=== PATIENT | male | born 1940 | race Caucasian/White ===

== ENCOUNTER 2017-12-28 19:35 | Inpatient (IN) | payer MEDICARE, BC ==
[~2017-12-28] VITALS: Ht 188 cm; Wt 107.5 kg
[~2017-12-28 19:35] MED LIST: AMOX500 PO; ASPI81CH PO; BUPR75 PO; GLIM4 PO; INSULANPEN SC; JANUMET XR 50-1 EAC1 PO; LISI5 PO; MAGOXI400 PO; Ocuvite Preser1 EACH PO; ROSU5 PO; RXAMOX500 PO; TICA90TA PO; [UNRECOGNIZED DRUG - OTHER]
[2017-12-28 20:10] LABS: BASOPHILS ABSOLUTE AUTO 0.05 K/mm3 (0.00-0.23); BASOPHILS PERCENT AUTO 0 % (0-2); EOSINOPHILS ABSOLUTE AUTO 0.32 K/mm3 (0.00-0.68); EOSINOPHILS PERCENT AUTO 3 % (0-6); Hematocrit 42.4 % (37.0-53.0); Hemoglobin 13.6 g/dL (13.5-17.5); IMMATURE GRAN ABSOLUTE AUTO 0.02 K/mm3 (0.00-0.10); IMMATURE GRAN PERCENT AUTO 0 % (0-1); LYMPHOCYTES ABSOLUTE AUTO 3.47 K/mm3 (0.84-5.20); LYMPHOCYTES PERCENT AUTO 29 % (21-46); MONOCYTES ABSOLUTE AUTO 0.92 K/mm3 (0.16-1.47); MONOCYTES PERCENT AUTO 8 % (4-13); Mean Corpuscular HGB 30.2 pg (26.0-34.0); Mean Corpuscular HGB Conc 32.1 g/dL (31.5-36.5); Mean Corpuscular Volume 94 fL (80-100); Mean Platelet Volume 9.6 fL (9.1-12.4); NEUTROPHILS ABSOLUTE AUTO 7.36 K/mm3 (1.96-9.15); NEUTROPHILS PERCENT AUTO 61 % (41-73); Platelet Count 248 K/mm3 (150-400); RDW Coefficient Variation 12.8 % (11.7-14.2); RDW Standard Deviation 43.8 fL (35.1-46.3); Red Blood Cell Count 4.51 M/mm3 (4.30-5.90); White Blood Cell Count 12.14 K/mm3 (4.00-11.30)
[2017-12-28 20:28] LABS: Alanine Aminotransfer (ALT/SGP 23 U/L (12-78); Albumin/Globulin Ratio 0.8 (0.8-1.8); Alk Phos 42 U/L (50-136); Anion Gap 8 mmol/L (6-16); Aspartate Aminotrans (AST/SGOT 22 U/L (12-37); Bilirubin, Total 0.4 mg/dL (0.1-1.0); Blood Urea Nitrogen 23 mg/dL (8-24); Bun/Creatinine Ratio 14.8 (12.0-20.0); CO2, Blood 24 mmol/L (21-32); Calcium, Blood 8.1 mg/dL (8.5-10.1); Chloride, Blood 109 mmol/L (98-108); Creatinine, Blood 1.55 mg/dL (0.60-1.20); Globulin, Blood 3.9 g/dL (2.2-4.0); Glomerular Filtration Rate 47 (60-); Glucose, Blood 112 mg/dL (70-99); Magnesium, Blood 2.1 mg/dL (1.6-2.4); Potassium, Blood 4.5 mmol/L (3.5-5.5); Sodium, Blood 141 mmol/L (136-145); Total Protein, Blood 6.9 g/dL (6.4-8.2); Troponin I <0.015 ng/mL (0.000-0.040)
[2017-12-28] MEDS ORDERED: Janumet 50-1,01 EACH PO (23:39)
[2017-12-28] MEDS ORDERED: CARV3.125 (23:53)
[2017-12-29 03:59] LABS: Bun/Creatinine Ratio 15.2 (12.0-20.0); Calcium, Blood 7.6 mg/dL (8.5-10.1); Creatinine, Blood 1.51 mg/dL (0.60-1.20); Potassium, Blood 4.1 mmol/L (3.5-5.5)
[2017-12-29 10:23] LABS: International Normalized Ratio 1.05; Prothrombin Time Results 10.9 Sec (9.7-11.5)
== END 2017-12-29 13:43 | disposition short-term general hospital (02) | DRG 282 ==
LOC: ER 19:35 → MEDS 19:36 → PCU 12-29 10:44 → MEDS 12-29 12:44 → PCU 12-29 13:43
PROVIDERS: Emergency Medicine; Internal Medicine; Internal Medicine Cardiovascular Disease
PROC: 3E0234Z Introduction of Serum, Toxoid and Vaccine into Muscle, Percutaneous Approach (ICD-10-PCS; 2017-12-28)
PROC: 4A023N7 Measurement of Cardiac Sampling and Pressure, Left Heart, Percutaneous Approach (ICD-10-PCS; principal; 2017-12-29)
PROC: B2111ZZ Fluoroscopy of Multiple Coronary Arteries using Low Osmolar Contrast (ICD-10-PCS; 2017-12-29)
DX: I21.4 Non-ST elevation (NSTEMI) myocardial infarction (principal); E11.22 Type 2 diabetes mellitus with diabetic chronic kidney disease; E11.40 Type 2 diabetes mellitus with diabetic neuropathy, unspecified; E78.5 Hyperlipidemia, unspecified; I25.10 Atherosclerotic heart disease of native coronary artery without angina pectoris; I25.2 Old myocardial infarction; Z23 Encounter for immunization; I12.9 Hypertensive chronic kidney disease with stage 1 through stage 4 chronic kidney disease, or unspecified chronic kidney disease; N18.9 Chronic kidney disease, unspecified; I44.0 Atrioventricular block, first degree; N40.0 Benign prostatic hyperplasia without lower urinary tract symptoms
CPT/HCPCS: 36415; 71045; 80048; 80053; 82947; 83735; 84484; 85025; 85610; 85730; 86850; 86900; 86901; 93005; 93010; 93306; 93458; 96372; 96374; 96375; 99152; 99153; 99285; C1769; C1894; G0378; J1170; J1644; J1650; J1815; J2250; J2405; J3010; J7030; Q9967

== ENCOUNTER 2018-11-12 11:01 | Day surgery (SDC) | payer MEDICARE, BC ==
[~2018-11-12] VITALS: Ht 188 cm; Wt 94.4 kg
[~2018-11-12 11:01] MED LIST changes: +CARV3.125; +Janumet 50-1,01 EACH PO; +METF500C; +METO25; +PANT40; +TRULICITY0.75 MG/0.
== END 2018-11-12 13:05 | disposition home or self-care (01) ==
LOC: ORSCSDS 11:01
PROVIDERS: Internal Medicine Gastroenterology
PROC: 0DB68ZX Excision of Stomach, Via Natural or Artificial Opening Endoscopic, Diagnostic (ICD-10-PCS; principal; 2018-11-12 12:30)
PROC: 0DJD8ZZ Inspection of Lower Intestinal Tract, Via Natural or Artificial Opening Endoscopic (ICD-10-PCS; principal; 2018-11-12 12:30)
DX: K30 Functional dyspepsia (principal); Z12.11 Encounter for screening for malignant neoplasm of colon; K20.9 Esophagitis, unspecified; K29.70 Gastritis, unspecified, without bleeding; K22.2 Esophageal obstruction; K31.7 Polyp of stomach and duodenum; K57.30 Diverticulosis of large intestine without perforation or abscess without bleeding; I25.10 Atherosclerotic heart disease of native coronary artery without angina pectoris; I12.9 Hypertensive chronic kidney disease with stage 1 through stage 4 chronic kidney disease, or unspecified chronic kidney disease; E11.22 Type 2 diabetes mellitus with diabetic chronic kidney disease; N18.9 Chronic kidney disease, unspecified; K21.9 Gastro-esophageal reflux disease without esophagitis; I25.2 Old myocardial infarction; Z87.891 Personal history of nicotine dependence; Z79.899 Other long term (current) drug therapy; Z79.82 Long term (current) use of aspirin
CPT/HCPCS: 43239; G0121; 82947; 88305; 88342; J7120

== ENCOUNTER → 2019-01-28 | Outpatient (CLI) | payer MEDICARE, BC ==
[2019-01-28 13:09] LABS: Appearance, Urine Clear (Clear); Bilirubin, Urine Neg (Neg); Blood, Urine Neg (Neg); Color, Urine Yellow (P-Yellow); Glucose Qualitative, Urine Neg (Neg); Ketones, Urine Neg (Neg); Leukocyte Esterase, Urine Neg (Neg); Nitrite, Urine Neg (Neg); Protein, Urine Neg (Neg); Urobilinogen, Urine NORM (Normal)
== END | disposition home or self-care (01) ==
LOC: LAB 09:49 → LAB SHORT 09:49
PROVIDERS: Internal Medicine
DX: N18.3 Chronic kidney disease, stage 3 (moderate) (principal)
CPT/HCPCS: 81003

== ENCOUNTER 2019-05-09 19:25 | Inpatient (IN) | payer MEDICARE, BC ==
[~2019-05-09] VITALS: Ht 188 cm; Wt 99.1 kg
[~2019-05-09 19:25] MED LIST changes: +ASPI325 PO; -ASPI81CH PO; -BUPR75 PO; +Wellbutrin Sr200 MG PO
[2019-05-09 20:00] LABS: BASOPHILS ABSOLUTE AUTO 0.04 K/mm3 (0.00-0.23); BASOPHILS PERCENT AUTO 1 % (0-2); EOSINOPHILS ABSOLUTE AUTO 0.29 K/mm3 (0.00-0.68); EOSINOPHILS PERCENT AUTO 4 % (0-6); Hematocrit 42.7 % (37.0-53.0); Hemoglobin 13.7 g/dL (13.5-17.5); IMMATURE GRAN ABSOLUTE AUTO 0.02 K/mm3 (0.00-0.10); IMMATURE GRAN PERCENT AUTO 0 % (0-1); LYMPHOCYTES ABSOLUTE AUTO 2.47 K/mm3 (0.84-5.20); LYMPHOCYTES PERCENT AUTO 32 % (21-46); MONOCYTES PERCENT AUTO 9 % (4-13); Mean Corpuscular HGB 31.2 pg (26.0-34.0); Mean Corpuscular HGB Conc 32.1 g/dL (31.5-36.5); Mean Corpuscular Volume 97 fL (80-100); Mean Platelet Volume 9.5 fL (9.1-12.4); NEUTROPHILS ABSOLUTE AUTO 4.24 K/mm3 (1.96-9.15); NEUTROPHILS PERCENT AUTO 55 % (41-73); Platelet Count 290 K/mm3 (150-400); RDW Coefficient Variation 13.2 % (11.7-14.2); RDW Standard Deviation 47.2 fL (35.1-46.3); Red Blood Cell Count 4.39 M/mm3 (4.30-5.90); White Blood Cell Count 7.76 K/mm3 (4.00-11.30)
[2019-05-09] MEDS ORDERED: METO25 PO (20:03)
[2019-05-09] MEDS ORDERED: Janumet 50-5001 EACH PO (20:03)
[2019-05-09] MEDS ORDERED: MULTI VITAMIN1 EACH PO (20:04)
[2019-05-09] MEDS ORDERED: Senna8.6 MG PO (20:04)
[2019-05-09 20:16] LABS: Albumin, Blood 3.3 g/dL (3.4-5.0); Albumin/Globulin Ratio 0.9 (0.8-1.8); Bilirubin, Total 0.4 mg/dL (0.1-1.0); Calcium, Blood 8.9 mg/dL (8.5-10.1); Creatinine, Blood 1.93 mg/dL (0.60-1.20); Globulin, Blood 3.8 g/dL (2.2-4.0); Potassium, Blood 4.2 mmol/L (3.5-5.5); Total Protein, Blood 7.1 g/dL (6.4-8.2)
[2019-05-09 20:37] LABS: Ethanol (Alcohol), Blood, Med <3 mg/dL; Troponin I <0.015 ng/mL (0.000-0.040)
[2019-05-09 21:09] LABS: Source, Urine Clean Catch
[2019-05-09 21:11] LABS: Bilirubin, Urine Neg (Neg); Blood, Urine Neg (Neg); Glucose Qualitative, Urine Neg (Neg); Ketones, Urine Neg (Neg); Leukocyte Esterase, Urine Neg (Neg); Nitrite, Urine Neg (Neg); Protein, Urine 1+ (Neg); Urobilinogen, Urine NORM (Normal)
[2019-05-09 21:12] LABS: Appearance, Urine Clear (Clear); Color, Urine Yellow (P-Yellow)
[2019-05-09 21:26] LABS: U Amphetamine Screen Not Detected; U Barbituate Screen Not Detected; U Benzodiazapine Screen Not Detected; U Buprenorphine Screen Not Detected; U Cannabinoids Screen Not Detected; U Cocaine Screen Not Detected; U Methadone Screen Not Detected; U Methamphetamine Screen Not Detected; U Opiates Screen Not Detected; U Oxycodone Screen Not Detected; U Phencyclidine Screen Not Detected; U Propoxyphene Screen Not Detected
--- NOTE | 2019-05-10 05:34 | NUR ---
05/10/19 0535 PT AWAKENED BY PLUSH BRUSHER TO DRAW BLOOD. SLEEPY BUT PLEASANT AND COOPERATIVE. DENIES ANY DISCOMFORT OR S/S. RN ASKED IF HE NEEDED TO URINATE AND HE SAID,"NO." EARLIER AT O350 PT DENIED NEED TO URINATE. BLADDER SCAN WAS DONE AND SHOWED 825 ML. RN INFORMED PT TO TRY AND VOID AND HE STOOD AND VOIDED 150 ML CLEAR, CECY URINE. PT DECLINED TO TRY TO VOID AT THIS TIME. HEART MONITOR STABLE AT "SR WITH FIRST DEGREE HEART BLOCK AT 77."
[2019-05-10 06:15] LABS: Hematocrit 38.8 % (37.0-53.0); Hemoglobin 12.5 g/dL (13.5-17.5); Mean Corpuscular HGB 31.3 pg (26.0-34.0); Mean Corpuscular HGB Conc 32.2 g/dL (31.5-36.5); Mean Corpuscular Volume 97 fL (80-100); Mean Platelet Volume 9.8 fL (9.1-12.4); Platelet Count 260 K/mm3 (150-400); RDW Coefficient Variation 13.3 % (11.7-14.2); RDW Standard Deviation 47.9 fL (35.1-46.3); White Blood Cell Count 8.47 K/mm3 (4.00-11.30)
[2019-05-10 07:12] LABS: Albumin, Blood 2.9 g/dL (3.4-5.0); Albumin/Globulin Ratio 0.9 (0.8-1.8); Bilirubin, Total 0.4 mg/dL (0.1-1.0); Bun/Creatinine Ratio 12.5 (12.0-20.0); Calcium, Blood 8.3 mg/dL (8.5-10.1); Creatinine, Blood 1.84 mg/dL (0.60-1.20); Globulin, Blood 3.4 g/dL (2.2-4.0); Potassium, Blood 3.8 mmol/L (3.5-5.5); Total Protein, Blood 6.3 g/dL (6.4-8.2)
--- NOTE | 2019-05-10 10:43 | NUR ---
BLADDER SCAN POST VOID RESDIUAL SHOWED 999, CALL TO DR SALAS AND ORDERS FOR ATKINS CATH RECEIVED. PT'S AT BEDSIDE, SHE STATES THIS IS NORMAL FOR PT AND HIS MD IS AWARE. REQUESTS THAT ATKINS BE DELAYED UNTIL SHE SPEAKS WITH DR SALAS
--- NOTE | 2019-05-10 14:30 | NUR ---
MRI SCREENING FORM PT NOT ABLE TO ANSWER MRI SCREENING QUESTIONS, CALLED HIS [facility] AND OBTAINED ANSWERS OVER THE PHONE. FAXED TO IMAGING.
--- NOTE | 2019-05-10 15:21 | NUR ---
STRAIGHT CATH STRAIGHT CATH INSERTED WITHOUT DIFFICULTY. 1150 CLEAR CECY URINE RETURNED. UA SENT PER ORDER. PT TOLERATED WELL.
--- NOTE | 2019-05-10 17:17 | NUR ---
NO C/O PAIN OR OTHER DISCOMFORT, USING URINAL, BLADDER SCAN DONE WITH RESULTS OF 999. DR CALLED AND ORDERS OBTAINED FOR ATKINS INSERTION AND THEN A STRAIGHT CATH WHEN SPOUSE DENIED ATKINS. STRAIGHT CATH COMPLETED WITHOUT DIFFICULTY AND 1150 ML RESULT. URINE CULTURE SENT PER ORDERS. MRI OF HEAD ORDERED, WAITING AT THIS TIME. NO ACUTE CHANGES NOTED THIS SHIFT. WILL CONTINUE TO MONITOR AND REPORT TO ONCOMING RN.
--- NOTE | 2019-05-10 22:54 | NUR ---
05/10/19 2100 ALERT TO SELF ONLY THIS EVENING. WHEN ASKED IF HE SPOKE WITH MD TODAY HE STATED HE SAW THE DOCTOR AT "[facility]OW BY THE ELEVATOR". HE DID NOT KNOW WHERE HE WAS OR THE DATE.
--- NOTE | 2019-05-11 01:48 | NUR ---
05/11/19 0035 BED ALARM SOUNDED AND PT STATED HE NEEDED TO "PEE". INSISTED TO GO TO BATHROOM AND GIVEN URINAL TO USE AND EXPLAINED NEED TO MEASURE URINE. AFTER PT CAME OUT OF BATHROOM HE DUMPED URINE IN TOILET AND THUS RN UNSURE OF AMOUNT VOIDED. BLADDER SCAN DONE = 947 ML. AT 0100 RN CATHED BUT ONLY DRAINED 220 ML. BED ALARM ON.
--- NOTE | 2019-05-11 03:36 | NUR ---
05/11/19 0310 PT TOOK OFF TWILL CUTTER AGAIN. NO REASON GIVEN. TELEMETRY REAPPLIED. MORE CONFUSED TONIGHT. INFORMED PT NOT TO TAKE OFF ANY EQUIPMENT HE IS IN THE HOSPITAL FOR OBSERVATION. SMILED AND SAID,"OKAY".
--- NOTE | 2019-05-11 03:51 | NUR ---
05/11/19 0345 BED ALARM SOUNDING OFF. PT GOT UP AND WANTED TO CHECK HIS CLOTHES BAG AND HE DID. NO REASON GIVEN. REMINDED THAT IT IS 0345 AM. SNACK GIVEN. RESTING IN BED AND READING MAGAZINE.
[2019-05-11 06:18] LABS: Hematocrit 40.9 % (37.0-53.0); Hemoglobin 13.2 g/dL (13.5-17.5)
[2019-05-11 06:35] LABS: Bun/Creatinine Ratio 12.2 (12.0-20.0); Calcium, Blood 8.3 mg/dL (8.5-10.1); Creatinine, Blood 1.96 mg/dL (0.60-1.20); Potassium, Blood 4.3 mmol/L (3.5-5.5)
--- NOTE | 2019-05-11 06:38 | NUR ---
05/11/19 0610 PT OUT IN [place] AND GAVE RN THE HEART MONITOR BOX WITH LEAD WIRES. HE HAD TAKEN IT OFF AGAIN. DIRECTED HIM BACK IN ROOM AND INFORMED HIM THAT THE HEART MONITOR NEEDS TO GO BACK ON AGAIN. HE WAS AGREEABLE AND IT WAS RE-APPLIED AND RHYTHM REMAINS STABLE. MORE CONFUSED THIS SHIFT.
--- NOTE | 2019-05-11 17:00 | NUR ---
PATIENT IS ALERT AND ORIENTED TO SELF, FAMILY AND THE PRESIDENT. A BLADDER SCAN WAS PERFORMED THAT SHOWED OVER 1,000 ML OF URIN IN THE BLADDER. STAFF HAS ENCOURAGED PATIENT TO VOID USING URINAL, HE PUTS OUT ABOUT 100 ML AT A TIME. PATIENT'S STATES URINARY RETENTION IS NORMAL FOR HIM AND SHOWS NO CONCERNS. WILL BLADDER SCAN ONCE MORE BEFORE END OF SHIFT. THE PATIENT'S IS AT THE BEDSIDE. WILL CONTINUE TO MONITOR.
[2019-05-11 18:23] LABS: CHOL/HDL RATIO 4.1; Cholesterol 173 mg/dL (50-200); HDL Cholesterol 42 mg/dL (>39); LDL/HDL RATIO 2.3; Low Density Lipoprotein Chol 98 mg/dL (0-110); Triglycerides 164 mg/dL (30-160); Very Low Density Lipoprot Chol 32 mg/dL (6-32)
--- NOTE | 2019-05-11 23:17 | NUR ---
05/11/192014 LAYING IN BED READING. DENIES ANY S/S OR DISCOMFORT. ALERT TO PERSON AND "HOSPITAL" ONLY. UNSURE OF REASONS FOR ADMISSION OR PLAN OF CARE. UPDATED HIM AGAIN THIS EVENING OF EVENTS OF ADMISSION. PT UNINTERESTED AND UNEMOTIONAL ABOUT INFO. REMINDED HIM TO USE URINAL WE NEEDED TO MEASURE URINE. ALSO REMINDED HIM ABOUT HEART MONITOR AND TO NOT REMOVE IT. PT STATES "OKAY."
--- NOTE | 2019-05-12 00:42 | NUR ---
05/11/19 2340 FIRE DRILL ALARM SOUNDING AND WOKE UP PT. SCARED AND UNSURE OF WHERE HE IS AND WHY ALARMS WERE ON. REASSURED AND GUIDED BACK TO ROOM AND INTO BED.
--- NOTE | 2019-05-12 04:29 | NUR ---
05/12/19 0345 AWAKE AND IN POLANCO C/O NOISE IN POL[place] WOKE HIM UP. ENCOURAGED TO VOID AND GIVEN URINAL TO MEASURE. PT CLOSED BR DOOR FOR PRIVACY AND RN HEARD VOIDING AND THEN FLUSH OF TOILET. PT STATES HE FLUSHED THE TOILET AFTER VOIDING. BLADDER SCAN = 354 ML[address] NO [address] CATH AT THIS TIME. VITALS TAKEN AND ARE STABLE.
--- NOTE | 2019-05-12 07:56 | NUR ---
05/12/19 0640 PT HAD GOTTEN UP AND HIS PJ PANTS SLIPPED DOWN AND HE FELL. ASSISTED BACK TO BED AND VITALS TAKEN. DENIES ANY PAIN AND NO VISIBLE INJURIES SEEN. RN WILL NOTIFY HOSPITALIST. PT RESTING IN BED WATCHING TV. HE DID NOT KNOW WHY HE GOT UP.
[2019-05-12] MEDS ORDERED: TAMS.4ER PO (11:32)
[2019-05-12] MEDS ORDERED: CLOP75 PO (11:32)
[2019-05-12] MEDS ORDERED: Crestor20 MG PO (11:33)
--- NOTE | 2019-05-12 13:15 | NUR ---
SUMMARY/DISCHARGE PT DISCHARGED TO HOME WITH HIS SPOUSE, PT HAS BEEN PLEASANT AND COOPERATIVE T/O THE DAY, FORGETFUL AT TIMES, POOR SHORT TERM MEMORY, DISCHARGE INSTRUCTIONS GIVEN TO THE SPOUSE, FOLLOW UP APPOINTMENT MADE FOR TOMORROW AT 4PM, PT AND SPOUSE DECLINED A WHEELCHAIR, ABLE TO AMBULATE OUT SAFELY
== END 2019-05-12 13:06 | disposition home or self-care (01) | DRG 65 ==
LOC: ER 19:25 → MEDS 19:26
PROVIDERS: Emergency Medicine; Internal Medicine; ADMIT Internal Medicine
DX: I63.9 Cerebral infarction, unspecified (principal); G93.49 Other encephalopathy; I25.2 Old myocardial infarction; Z90.79 Acquired absence of other genital organ(s); F17.290 Nicotine dependence, other tobacco product, uncomplicated; Z79.82 Long term (current) use of aspirin; R33.9 Retention of urine, unspecified; N18.3 Chronic kidney disease, stage 3 (moderate); Z79.02 Long term (current) use of antithrombotics/antiplatelets; Z79.84 Long term (current) use of oral hypoglycemic drugs; I12.9 Hypertensive chronic kidney disease with stage 1 through stage 4 chronic kidney disease, or unspecified chronic kidney disease; N40.1 Benign prostatic hyperplasia with lower urinary tract symptoms; E86.0 Dehydration; T67.5XXA Heat exhaustion, unspecified, initial encounter; E11.22 Type 2 diabetes mellitus with diabetic chronic kidney disease
CPT/HCPCS: 36415; 51701; 70450; 70496; 70498; 70551; 71045; 71046; 80048; 80053; 80061; 84484; 85014; 85018; 85025; 85027; 87077; 87086; 87147; 87186; 93005; 93010; 93306; 93880; 96360-59; 96361; 96372; 97110; 97161; 97165; 97535; 99285-25; A9270; G0378; G0480; J1650; J7030; Q9967

== ENCOUNTER 2019-06-19 19:05 | Emergency (ER) | payer MEDICARE, BC ==
[~2019-06-19] VITALS: Ht 188 cm; Wt 90.7 kg
[~2019-06-19 19:05] MED LIST changes: +CLOP75 PO; +Crestor20 MG PO; +Janumet 50-5001 EACH PO; +METO25 PO; +MULTI VITAMIN1 EACH PO; +Senna8.6 MG PO; +TAMS.4ER PO
[2019-06-19 20:02] LABS: BASOPHILS ABSOLUTE AUTO 0.05 K/mm3 (0.00-0.23); BASOPHILS PERCENT AUTO 1 % (0-2); EOSINOPHILS PERCENT AUTO 3 % (0-6); Hemoglobin 13.6 g/dL (13.5-17.5); IMMATURE GRAN ABSOLUTE AUTO 0.02 K/mm3 (0.00-0.10); IMMATURE GRAN PERCENT AUTO 0 % (0-1); LYMPHOCYTES ABSOLUTE AUTO 3.68 K/mm3 (0.84-5.20); LYMPHOCYTES PERCENT AUTO 50 % (21-46); MONOCYTES ABSOLUTE AUTO 0.77 K/mm3 (0.16-1.47); MONOCYTES PERCENT AUTO 10 % (4-13); Mean Corpuscular HGB 30.8 pg (26.0-34.0); Mean Corpuscular HGB Conc 32.4 g/dL (31.5-36.5); Mean Corpuscular Volume 95 fL (80-100); Mean Platelet Volume 9.2 fL (9.1-12.4); NEUTROPHILS ABSOLUTE AUTO 2.72 K/mm3 (1.96-9.15); NEUTROPHILS PERCENT AUTO 37 % (41-73); Platelet Count 269 K/mm3 (150-400); RDW Standard Deviation 46.5 fL (35.1-46.3); Red Blood Cell Count 4.41 M/mm3 (4.30-5.90); White Blood Cell Count 7.44 K/mm3 (4.00-11.30)
[2019-06-19 20:25] LABS: Albumin, Blood 2.9 g/dL (3.4-5.0); Albumin/Globulin Ratio 0.6 (0.8-1.8); Bilirubin, Total 0.3 mg/dL (0.1-1.0); Bun/Creatinine Ratio 15.6 (12.0-20.0); Calcium, Blood 8.7 mg/dL (8.5-10.1); Creatinine, Blood 2.24 mg/dL (0.60-1.20); Globulin, Blood 4.6 g/dL (2.2-4.0); Potassium, Blood 4.3 mmol/L (3.5-5.5); Total Protein, Blood 7.5 g/dL (6.4-8.2)
[2019-06-19] MEDS ORDERED: TRULICITY1.5 MG/0.5 SC (22:40)
== END 2019-06-19 22:45 | disposition home or self-care (01) ==
LOC: ER 19:05
PROVIDERS: Emergency Medicine
DX: E11.65 Type 2 diabetes mellitus with hyperglycemia (principal); E11.22 Type 2 diabetes mellitus with diabetic chronic kidney disease; N18.9 Chronic kidney disease, unspecified; I25.2 Old myocardial infarction; I25.10 Atherosclerotic heart disease of native coronary artery without angina pectoris; N40.0 Benign prostatic hyperplasia without lower urinary tract symptoms; F17.290 Nicotine dependence, other tobacco product, uncomplicated; Z86.73 Personal history of transient ischemic attack (TIA), and cerebral infarction without residual deficits; Z79.82 Long term (current) use of aspirin; Z79.899 Other long term (current) drug therapy
CPT/HCPCS: 36415; 80053; 82947; 85025; 99283

== ENCOUNTER → 2019-08-16 | Outpatient (CLI) | payer MEDICARE, BC ==
[~2019-08-16] MED LIST changes: +TRULICITY1.5 MG/0.5 SC
[2019-08-16 16:19] LABS: Hematocrit 42.5 % (37.0-53.0); Hemoglobin 13.4 g/dL (13.5-17.5)
[2019-08-16 16:40] LABS: Albumin, Blood 3.2 g/dL (3.4-5.0); Anion Gap 9 mmol/L (6-16); Blood Urea Nitrogen 32 mg/dL (8-24); Bun/Creatinine Ratio 12.4 (12.0-20.0); CO2, Blood 27 mmol/L (21-32); Calcium, Blood 8.6 mg/dL (8.5-10.1); Chloride, Blood 109 mmol/L (98-108); Creatinine, Blood 2.59 mg/dL (0.60-1.20); Glomerular Filtration Rate 24 (60-); Glucose, Blood 140 mg/dL (70-99); Phosphorus, Blood 3.9 mg/dL (2.5-4.9); Potassium, Blood 4.6 mmol/L (3.5-5.5); Sodium, Blood 145 mmol/L (136-145)
== END | disposition home or self-care (01) ==
LOC: LAB EV 16:05 → LAB SHORT 16:05
PROVIDERS: Internal Medicine
DX: N17.9 Acute kidney failure, unspecified (principal)
CPT/HCPCS: 80069; 85014; 85018

== ENCOUNTER 2019-09-04 07:42 | Day surgery (SDC) | payer MEDICARE, BC ==
[~2019-09-04] VITALS: Ht 188 cm; Wt 92.0 kg
--- NOTE | 2019-09-04 08:53 | NUR ---
PT A&O X3. LINQ IMPLANT EXPLAINED ALL QUESTIONS ANSWERED.
--- NOTE | 2019-09-04 09:16 | NUR ---
KLAUDIA JARAMILLO FROM [employer] IN ROOM.
--- NOTE | 2019-09-04 10:25 | NUR ---
PT TOLERATED LUNQ IMPLANT WELL. PT'S IS IN ROOM.
--- NOTE | 2019-09-04 10:31 | NUR ---
LINQ SITE SOFT NON-TENDER WITH NO HEMATOMA AND NO BLEEDING; DRESSING INTACT. PT DENIES ANY PAIN. KLAUDIA JARAMILLO IN ROOM TO POST IMPLANT EDUCATE.
--- NOTE | 2019-09-04 10:56 | NUR ---
DISCHARGE INSTRUCTIONS REVIEWED ALL QUESTIONS ANSWERED. NO CHANGES TO LINQ SITE. DRAFTING ENGINEER OUT VIA WHEELCHAIR ESCORT.
== END 2019-09-04 22:53 | disposition home or self-care (01) ==
LOC: MHTC 07:42
DX: G45.9 Transient cerebral ischemic attack, unspecified (principal); I13.0 Hypertensive heart and chronic kidney disease with heart failure and stage 1 through stage 4 chronic kidney disease, or unspecified chronic kidney disease; E11.22 Type 2 diabetes mellitus with diabetic chronic kidney disease; E78.5 Hyperlipidemia, unspecified; I50.9 Heart failure, unspecified; I77.819 Aortic ectasia, unspecified site; N18.9 Chronic kidney disease, unspecified; I25.10 Atherosclerotic heart disease of native coronary artery without angina pectoris; Z95.1 Presence of aortocoronary bypass graft; Z79.4 Long term (current) use of insulin; Z79.82 Long term (current) use of aspirin; Z79.02 Long term (current) use of antithrombotics/antiplatelets; Z87.891 Personal history of nicotine dependence
CPT/HCPCS: 33285; C1764; J7040

== ENCOUNTER 2020-05-09 12:05 | Emergency (ER) | payer MEDICARE, BC ==
[~2020-05-09] VITALS: Ht 188 cm; Wt 88.5 kg
[2020-05-09 13:10] LABS: BASOPHILS ABSOLUTE AUTO 0.04 K/mm3 (0.00-0.23); BASOPHILS PERCENT AUTO 0 % (0-2); EOSINOPHILS ABSOLUTE AUTO 0.11 K/mm3 (0.00-0.68); EOSINOPHILS PERCENT AUTO 1 % (0-6); Hematocrit 43.9 % (37.0-53.0); IMMATURE GRAN ABSOLUTE AUTO 0.08 K/mm3 (0.00-0.10); IMMATURE GRAN PERCENT AUTO 1 % (0-1); LYMPHOCYTES ABSOLUTE AUTO 1.34 K/mm3 (0.84-5.20); LYMPHOCYTES PERCENT AUTO 11 % (21-46); MONOCYTES ABSOLUTE AUTO 1.21 K/mm3 (0.16-1.47); MONOCYTES PERCENT AUTO 10 % (4-13); Mean Corpuscular HGB 29.8 pg (26.0-34.0); Mean Corpuscular HGB Conc 31.9 g/dL (31.5-36.5); Mean Corpuscular Volume 93 fL (80-100); Mean Platelet Volume 9.5 fL (9.1-12.4); NEUTROPHILS ABSOLUTE AUTO 9.98 K/mm3 (1.96-9.15); NEUTROPHILS PERCENT AUTO 78 % (41-73); Platelet Count 261 K/mm3 (150-400); RDW Coefficient Variation 13.5 % (11.7-14.2); RDW Standard Deviation 46.5 fL (35.1-46.3); White Blood Cell Count 12.76 K/mm3 (4.00-11.30)
[2020-05-09 13:30] LABS: Source, Urine Catheter
[2020-05-09 13:34] LABS: Albumin, Blood 3.1 g/dL (3.4-5.0); Albumin/Globulin Ratio 0.8 (0.8-1.8); Bilirubin, Total 0.7 mg/dL (0.1-1.0); Bun/Creatinine Ratio 17.8 (12.0-20.0); Calcium, Blood 8.7 mg/dL (8.5-10.1); Creatinine, Blood 2.19 mg/dL (0.60-1.20); Potassium, Blood 4.5 mmol/L (3.5-5.5); Total Protein, Blood 7.1 g/dL (6.4-8.2)
[2020-05-09 13:36] LABS: International Normalized Ratio 1.02; Prothrombin Time Results 10.9 Sec (9.7-11.5)
[2020-05-09 13:40] LABS: Bilirubin, Urine Neg (Neg); Blood, Urine 4+ (Neg); Glucose Qualitative, Urine Neg (Neg); Ketones, Urine Neg (Neg); Leukocyte Esterase, Urine 3+ (Neg); Nitrite, Urine Neg (Neg); Protein, Urine 3+ (Neg); Urobilinogen, Urine NORM (Normal)
[2020-05-09 13:56] LABS: Appearance, Urine Hazy (Clear); Color, Urine Yellow (P-Yellow)
[2020-05-09 13:59] LABS: White Blood Cells, Urine 25-50 /hpf (0-5)
[2020-05-09 14:00] LABS: Bacteria Many /hpf; Squamous Epithelial Cells Rare /hpf (Few)
== END 2020-05-09 15:02 | disposition home or self-care (01) ==
LOC: ER 12:05
PROVIDERS: Physician Assistant
DX: N39.0 Urinary tract infection, site not specified (principal); Z79.82 Long term (current) use of aspirin; Z79.899 Other long term (current) drug therapy; E11.9 Type 2 diabetes mellitus without complications; I25.2 Old myocardial infarction; Z86.73 Personal history of transient ischemic attack (TIA), and cerebral infarction without residual deficits; Z87.891 Personal history of nicotine dependence; R30.0 Dysuria
CPT/HCPCS: 36415; 80053; 81001; 83605; 85025; 85610; 85730; 87040; 87086; 96365; 99284-25; J0696; J7030

== ENCOUNTER 2021-01-15 14:42 | Inpatient (IN) | payer MEDICARE, BC ==
[~2021-01-15] VITALS: Ht 188 cm; Wt 95.3 kg
[~2021-01-15 14:42] MED LIST changes: -ASPI325 PO; +ASPI325EC PO; -METO25 PO; +METO25ER PO; -MULTI VITAMIN1 EACH PO; +MULVITA PO; +SENN187 PO; -Senna8.6 MG PO
[2021-01-15] MEDS ORDERED: BASAGLAR K100 UNIT/1 SC (14:50)
[2021-01-15] MEDS ORDERED: HUMALOG KW100 UNIT/1 SC (14:51)
[2021-01-15] MEDS ORDERED: PANT40 PO (14:52)
[2021-01-15 15:36] LABS: Albumin, Blood 3.1 g/dL (3.4-5.0); Albumin/Globulin Ratio 0.7 (0.8-1.8); Bilirubin, Total 0.5 mg/dL (0.1-1.0); Bun/Creatinine Ratio 15.8 (12.0-20.0); Calcium, Blood 8.7 mg/dL (8.5-10.1); Creatinine, Blood 2.02 mg/dL (0.60-1.20); Globulin, Blood 4.2 g/dL (2.2-4.0); Potassium, Blood 4.3 mmol/L (3.5-5.5); Total Protein, Blood 7.3 g/dL (6.4-8.2)
[2021-01-15 15:50] LABS: BASOPHILS ABSOLUTE AUTO 0.04 K/mm3 (0.00-0.23); BASOPHILS PERCENT AUTO 0 % (0-2); EOSINOPHILS ABSOLUTE AUTO 0.15 K/mm3 (0.00-0.68); EOSINOPHILS PERCENT AUTO 1 % (0-6); Hematocrit 43.3 % (37.0-53.0); Hemoglobin 13.9 g/dL (13.5-17.5); IMMATURE GRAN ABSOLUTE AUTO 0.08 K/mm3 (0.00-0.10); IMMATURE GRAN PERCENT AUTO 1 % (0-1); LYMPHOCYTES ABSOLUTE AUTO 1.77 K/mm3 (0.84-5.20); LYMPHOCYTES PERCENT AUTO 11 % (21-46); MONOCYTES ABSOLUTE AUTO 1.23 K/mm3 (0.16-1.47); MONOCYTES PERCENT AUTO 8 % (4-13); Mean Corpuscular HGB Conc 32.1 g/dL (31.5-36.5); Mean Corpuscular Volume 94 fL (80-100); Mean Platelet Volume 9.5 fL (9.1-12.4); NEUTROPHILS PERCENT AUTO 79 % (41-73); Platelet Count 283 K/mm3 (150-400); RDW Coefficient Variation 13.4 % (11.7-14.2); Red Blood Cell Count 4.63 M/mm3 (4.30-5.90); White Blood Cell Count 15.47 K/mm3 (4.00-11.30)
[2021-01-15 16:22] LABS: Source, Urine Catheter
[2021-01-15 16:26] LABS: Appearance, Urine Cloudy (Clear); Bilirubin, Urine Neg (Neg); Blood, Urine 4+ (Neg); Color, Urine Yellow (P-Yellow); Glucose Qualitative, Urine Neg (Neg); Ketones, Urine Neg (Neg); Leukocyte Esterase, Urine 3+ (Neg); Nitrite, Urine Neg (Neg); Protein, Urine 3+ (Neg); Urobilinogen, Urine 1+ (Normal); pH, Urine 6.5 (5.0-8.0)
[2021-01-15 16:38] LABS: Red Blood Cells, Urine 25-50 /hpf (0-2); White Blood Cells, Urine 25-50 /hpf (0-5)
[2021-01-15 16:42] LABS: Bacteria Mod /hpf; Squamous Epithelial Cells Not Seen /hpf (Few)
[2021-01-15] MEDS ORDERED: TRULICITY1.5 MG/0.1 SC (17:20)
[2021-01-15] MEDS ORDERED: BUPROPION HCL200 M1 PO (17:21)
[2021-01-15] MEDS ORDERED: PLAVIX75 MG PO (17:21)
[2021-01-15] MEDS ORDERED: TRAZ50 PO (17:21)
[2021-01-15] MEDS ORDERED: MEMANTINE HCL PO (17:21)
[2021-01-16 05:38] LABS: Bun/Creatinine Ratio 15.5 (12.0-20.0); Calcium, Blood 7.9 mg/dL (8.5-10.1); Creatinine, Blood 1.94 mg/dL (0.60-1.20); Potassium, Blood 4.3 mmol/L (3.5-5.5)
--- NOTE | 2021-01-16 05:58 | NUR ---
SHIFT SUMMARY ALERT, ABLE TO MAKE NEEDS KNOWN. COOPERATIVE WITH CARE. ANSWERS QUESTIONS TO THE BEST OF HIS ABILITY. FORGETFUL AT TIMES. NO C/O PAIN/DISCOMFORT. APPEARED TO REST MUCH OF THE NIGHT. IV FLUIDS CONTINUE TO INFUSE WITHOUT COMPLICATION. SUPRAPUBIC CATH REPLACED JANUARY 04; SECURED AND DRAINING TO GRAVITY. AWAITING PT EVALUATION. RECIEVED IN REPORT THAT AT HOME PATIENT UTILIZES A WALKING STICK WITH A SHUFFLING GAIT. VSS/AFEBRILE. BED REMAINS IN LOWEST POSITION; ALARM ON. CALL LIGHT AND BELONGINGS WITHIN REACH. CONTINUE WITH CURRENT PLAN OF CARE. REPORT TO ONCOMING RN.
--- NOTE | 2021-01-16 19:35 | NUR ---
PT AA7OX4. PLEASANT AND COOPERATIVE. SBA. SP CATHETER DRAINING TO GRAVITY. INSERTION SITE CLEANSED AND DRESSED WITH SPLIT GAUZE. TELE IN PLACE PADS REPLACED TODAY. CLIENT HAD NO MAJOR CLINICAL CHANGES, HE HAS NO QUESTIONS OR CONCERNS
--- NOTE | 2021-01-17 05:51 | NUR ---
SHIFT SUMMARY- PT. A&OX3 WITH INTERMITTENT CONFUSION. SUPRAPUBIC CATHETER IN PLACE. CATHETER BAG LEAKING LAST NIGHT, CHANGED OUT FOR NEW BAG. PATENT AND DRAINING WELL. PT. HAD NO COMPLAINTS OF PAIN OR DISCOMFORT T/O THE NIGHT. RESTED QUIETLY DURING THE NIGHT, NO APPARENT DISTRESS NOTED. DENIED ANY NEEDS, VSS. CALL LIGHT WITHIN REACH, SIDE RAILS UPX2, AND BED ALARM ON FOR SAFETY. WILL CONT TO MONITOR.
[2021-01-17 05:56] LABS: Bun/Creatinine Ratio 13.4 (12.0-20.0); Calcium, Blood 8.2 mg/dL (8.5-10.1); Creatinine, Blood 2.02 mg/dL (0.60-1.20)
[2021-01-17] MEDS ORDERED: LEVOFLOXACIN250 M1 PO (11:44)
--- NOTE | 2021-01-17 13:49 | NUR ---
SUPRA PUBIC CATHETER DISCONTINUED WITH OUT PROBLEMS. SUPRAPUBIC SITE CLEANED WITH SOAP AND WATER. RINSED WITH WARM SOAP AND WATER. SITE CLEANED WITH CHLORAPREP AND LET DRY. NEW CATHETER PLACED INTO SITE AND INFLATED TO 10CC. SMALL AMOUNT OF PINK URINE BACK.
--- NOTE | 2021-01-17 15:11 | NUR ---
PT DISCHARGED FROM THE UNIT. IV REMOVED. MEDICATIONS FAXED. DISCHARGE INSTRUCTIONS REVIEWED. FOLLOW UP APTS REVIEWED. DISCUSSED WITH PT AND . HIS SUPERPUBIC CATH WAS CHANGED THIS AFTERNOON. PT LEFT VIA WHEEL CHAIR. TO DRIVE HOME
[2021-01-26] MEDS ORDERED: MEMA10 PO (15:27)
[2021-01-26] MEDS ORDERED: VITAMIN D31000 UNI1 PO (19:11)
[2021-01-26] MEDS ORDERED: Magnesium250 MG PO (19:11)
--- NOTE | 2021-01-26 20:36 | NUR ---
REVIEWED INFO FOR CURRENT ADMISSION
[2021-01-30] MEDS ORDERED: OXAYDO5 M1 PO (10:08)
[2021-01-30] MEDS ORDERED: MAGNESIUM OXID400 M1 PO (10:09)
== END 2021-01-17 15:00 | disposition home or self-care (01) | DRG 698 ==
LOC: ER 14:42 → MEDS 14:43
PROVIDERS: Emergency Medicine; ADMIT Internal Medicine
DX: T83.510A Infection and inflammatory reaction due to cystostomy catheter, initial encounter (principal); A41.9 Sepsis, unspecified organism; N39.0 Urinary tract infection, site not specified; N17.9 Acute kidney failure, unspecified; N40.0 Benign prostatic hyperplasia without lower urinary tract symptoms; I12.9 Hypertensive chronic kidney disease with stage 1 through stage 4 chronic kidney disease, or unspecified chronic kidney disease; N18.30 Chronic kidney disease, stage 3 unspecified; E11.22 Type 2 diabetes mellitus with diabetic chronic kidney disease; Z95.1 Presence of aortocoronary bypass graft; I25.2 Old myocardial infarction; Z86.73 Personal history of transient ischemic attack (TIA), and cerebral infarction without residual deficits; Z98.42 Cataract extraction status, left eye; Z90.49 Acquired absence of other specified parts of digestive tract; Z90.89 Acquired absence of other organs; Z98.890 Other specified postprocedural states; Z79.4 Long term (current) use of insulin; Z79.02 Long term (current) use of antithrombotics/antiplatelets; Z79.899 Other long term (current) drug therapy; Z87.891 Personal history of nicotine dependence; Y84.6 Urinary catheterization as the cause of abnormal reaction of the patient, or of later complication, without mention of misadventure at the time of the procedure
CPT/HCPCS: 36415; 71045; 80048; 80053; 81001; 82947; 83605; 85025; 87040; 87086; 93005; 93010; 96361-59; 96365-59; 97110; 97116; 97161; 97530; 99285-25; A9270; A9270-GY; J0692; J0696; J1644; J7030; J7120

== ENCOUNTER 2021-01-26 13:56 | Observation (INO) | payer MEDICARE, BC ==
[~2021-01-26] VITALS: Ht 188 cm; Wt 90.8 kg
== END 2021-01-30 14:47 | disposition home health service (06) ==
LOC: ER 13:56 → MEDS 13:57 → ENPENDDIS 01-30 09:14 → MEDS 01-30 14:47
PROVIDERS: ADMIT Internal Medicine
DX: S32.591A Other specified fracture of right pubis, initial encounter for closed fracture (principal); S32.511A Fracture of superior rim of right pubis, initial encounter for closed fracture; E11.9 Type 2 diabetes mellitus without complications; M54.10 Radiculopathy, site unspecified; G31.84 Mild cognitive impairment of uncertain or unknown etiology; I25.2 Old myocardial infarction; Z86.73 Personal history of transient ischemic attack (TIA), and cerebral infarction without residual deficits; Z87.891 Personal history of nicotine dependence; Z95.1 Presence of aortocoronary bypass graft; Z79.4 Long term (current) use of insulin; Z79.899 Other long term (current) drug therapy; Z89.022 Acquired absence of left finger(s); Z79.02 Long term (current) use of antithrombotics/antiplatelets; Z79.82 Long term (current) use of aspirin; Z91.81 History of falling; W18.39XA Other fall on same level, initial encounter; Y92.009 Unspecified place in unspecified non-institutional (private) residence as the place of occurrence of the external cause
CPT/HCPCS: 36415; 70450; 72125; 73502; 80048; 82947; 96372; 97110; 97116; 97162; 97166; 97530; 99285-25; A9270; G0378; J1644; J7512

== ENCOUNTER 2021-06-12 11:12 | Emergency (ER) | payer MEDICARE, BC ==
[~2021-06-12] VITALS: Ht 188 cm; Wt 90.7 kg
[~2021-06-12 11:12] MED LIST changes: +BASAGLAR K100 UNIT/1 SC; +BUPROPION HCL200 M1 PO; +HUMALOG KW100 UNIT/1 SC; +LEVOFLOXACIN250 M1 PO; +MAGNESIUM OXID400 M1 PO; +MEMA10 PO; +MEMANTINE HCL PO; +Magnesium250 MG PO; +OXAYDO5 M1 PO; +PANT40 PO; +PLAVIX75 MG PO; +TRAZ50 PO; +TRULICITY1.5 MG/0.1 SC; +VITAMIN D31000 UNI1 PO
[2021-06-12] MEDS ORDERED: ACET500 PO (15:49)
== END 2021-06-12 16:08 | disposition home or self-care (01) ==
LOC: ER 11:12
DX: M25.552 Pain in left hip (principal); S32.591D Other specified fracture of right pubis, subsequent encounter for fracture with routine healing; S32.401D Unspecified fracture of right acetabulum, subsequent encounter for fracture with routine healing; I10 Essential (primary) hypertension; E11.9 Type 2 diabetes mellitus without complications; F17.290 Nicotine dependence, other tobacco product, uncomplicated; Z79.82 Long term (current) use of aspirin; Z79.899 Other long term (current) drug therapy; Z79.02 Long term (current) use of antithrombotics/antiplatelets; Z79.4 Long term (current) use of insulin; W18.30XA Fall on same level, unspecified, initial encounter
CPT/HCPCS: 73502; 99283-25; A9270

== ENCOUNTER 2021-08-17 10:48 | Emergency (ER) | payer MEDICARE, BC ==
[~2021-08-17] VITALS: Ht 188 cm; Wt 83.9 kg
[~2021-08-17 10:48] MED LIST changes: +ACET500 PO
[2021-08-17] MEDS ORDERED: CIPR250 PO (11:20)
[2021-08-17 11:46] LABS: BASOPHILS ABSOLUTE AUTO 0.07 K/mm3 (0.00-0.23); BASOPHILS PERCENT AUTO 1 % (0-2); EOSINOPHILS ABSOLUTE AUTO 0.34 K/mm3 (0.00-0.68); EOSINOPHILS PERCENT AUTO 4 % (0-6); Hematocrit 43.6 % (37.0-53.0); IMMATURE GRAN ABSOLUTE AUTO 0.04 K/mm3 (0.00-0.10); IMMATURE GRAN PERCENT AUTO 1 % (0-1); LYMPHOCYTES ABSOLUTE AUTO 1.95 K/mm3 (0.84-5.20); LYMPHOCYTES PERCENT AUTO 23 % (21-46); MONOCYTES ABSOLUTE AUTO 0.62 K/mm3 (0.16-1.47); MONOCYTES PERCENT AUTO 7 % (4-13); Mean Corpuscular HGB 30.6 pg (26.0-34.0); Mean Corpuscular HGB Conc 32.1 g/dL (31.5-36.5); Mean Corpuscular Volume 95 fL (80-100); Mean Platelet Volume 9.4 fL (9.1-12.4); NEUTROPHILS ABSOLUTE AUTO 5.49 K/mm3 (1.96-9.15); NEUTROPHILS PERCENT AUTO 65 % (41-73); Platelet Count 307 K/mm3 (150-400); RDW Coefficient Variation 13.7 % (11.7-14.2); RDW Standard Deviation 47.8 fL (35.1-46.3); Red Blood Cell Count 4.58 M/mm3 (4.30-5.90); White Blood Cell Count 8.51 K/mm3 (4.00-11.30)
[2021-08-17 12:05] LABS: Albumin, Blood 2.8 g/dL (3.4-5.0); Albumin/Globulin Ratio 0.7 (0.8-1.8); Bilirubin, Total 0.5 mg/dL (0.1-1.0); Bun/Creatinine Ratio 14.4 (12.0-20.0); Calcium, Blood 9.3 mg/dL (8.5-10.1); Creatinine, Blood 2.29 mg/dL (0.60-1.20); Globulin, Blood 4.1 g/dL (2.2-4.0); Potassium, Blood 4.1 mmol/L (3.5-5.5); Total Protein, Blood 6.9 g/dL (6.4-8.2)
[2021-08-17 12:26] LABS: Source, Urine Catheter
[2021-08-17 12:29] LABS: Appearance, Urine Cloudy (Clear); Bilirubin, Urine Neg (Neg); Blood, Urine 2+ (Neg); Color, Urine Yellow (P-Yellow); Glucose Qualitative, Urine Neg (Neg); Ketones, Urine 2+ (Neg); Leukocyte Esterase, Urine 2+ (Neg); Nitrite, Urine Pos (Neg); Protein, Urine 2+ (Neg); Specific Gravity, Urine 1.015 (1.003-1.022); Urobilinogen, Urine NORM (Normal)
[2021-08-17 12:53] LABS: Bacteria Mod /hpf; Squamous Epithelial Cells Few /hpf (Few)
== END 2021-08-17 14:04 | disposition home or self-care (01) ==
LOC: ER 10:48
PROVIDERS: Physician Assistant
DX: S00.01XA Abrasion of scalp, initial encounter (principal); N39.0 Urinary tract infection, site not specified; R53.1 Weakness; E11.40 Type 2 diabetes mellitus with diabetic neuropathy, unspecified; I25.2 Old myocardial infarction; Z86.73 Personal history of transient ischemic attack (TIA), and cerebral infarction without residual deficits; Z79.82 Long term (current) use of aspirin; Z79.899 Other long term (current) drug therapy; W18.30XA Fall on same level, unspecified, initial encounter
CPT/HCPCS: 36415; 70450; 80053; 81001; 85025; 87077; 87086; 87186; 93005; 93010; 99284-25

== ENCOUNTER 2021-10-27 20:00 | Inpatient (IN) | payer MEDICARE, BC ==
[~2021-10-27] VITALS: Ht 188 cm; Wt 80.2 kg
[~2021-10-27 20:00] MED LIST changes: +CIPR250 PO
[2021-10-27 21:47] LABS: BASOPHILS ABSOLUTE AUTO 0.05 K/mm3 (0.00-0.23); BASOPHILS PERCENT AUTO 0 % (0-2); EOSINOPHILS ABSOLUTE AUTO 0.16 K/mm3 (0.00-0.68); EOSINOPHILS PERCENT AUTO 1 % (0-6); Hematocrit 41.2 % (37.0-53.0); Hemoglobin 13.2 g/dL (13.5-17.5); IMMATURE GRAN ABSOLUTE AUTO 0.13 K/mm3 (0.00-0.10); IMMATURE GRAN PERCENT AUTO 1 % (0-1); LYMPHOCYTES ABSOLUTE AUTO 1.88 K/mm3 (0.84-5.20); LYMPHOCYTES PERCENT AUTO 15 % (21-46); MONOCYTES ABSOLUTE AUTO 0.73 K/mm3 (0.16-1.47); MONOCYTES PERCENT AUTO 6 % (4-13); Mean Corpuscular HGB 30.5 pg (26.0-34.0); Mean Corpuscular Volume 95 fL (80-100); Mean Platelet Volume 8.9 fL (9.1-12.4); NEUTROPHILS ABSOLUTE AUTO 9.61 K/mm3 (1.96-9.15); NEUTROPHILS PERCENT AUTO 77 % (41-73); Platelet Count 340 K/mm3 (150-400); RDW Coefficient Variation 13.3 % (11.7-14.2); RDW Standard Deviation 47.3 fL (35.1-46.3); Red Blood Cell Count 4.33 M/mm3 (4.30-5.90); White Blood Cell Count 12.56 K/mm3 (4.00-11.30)
[2021-10-27 22:24] LABS: Albumin, Blood 3.1 g/dL (3.4-5.0); Albumin/Globulin Ratio 0.9 (0.8-1.8); Bilirubin, Total 0.4 mg/dL (0.1-1.0); Bun/Creatinine Ratio 14.9 (12.0-20.0); Calcium, Blood 8.8 mg/dL (8.5-10.1); Creatinine, Blood 2.02 mg/dL (0.60-1.20); Globulin, Blood 3.4 g/dL (2.2-4.0); Potassium, Blood 4.3 mmol/L (3.5-5.5); Total Protein, Blood 6.5 g/dL (6.4-8.2)
[2021-10-27 22:40] LABS: Influenza A, PCR NEGATIVE (NEGATIVE); Influenza B, PCR NEGATIVE (NEGATIVE); Resp Syncytial Virus, PCR NEGATIVE (NEGATIVE); SARS-Cov-2 (COVID-19) PCR, MMC NEGATIVE (NEGATIVE)
[2021-10-28] MEDS ORDERED: METO25ER PO (02:25)
[2021-10-28] MEDS ORDERED: Amoxicillin500 MG PO (02:30)
--- NOTE | 2021-10-28 05:57 | NUR ---
SHIFT SUMMARY 81 YR M ADMITTED ON 10/27/21 FOR ACUTE RIGHT FEMORAL NECK FX. FULL CODE. PT HAD A GROUND LEVEL FALL IN WHICH HE SUSTAINED THE HIP FX. HE HAS DEMENTIA AND POOR BALANCE. POSSIBLE SURGICAL CONSULT IN A.M. TYPE 2 DIABETES AND NEUROPATHY.
[2021-10-28 08:16] LABS: BASOPHILS ABSOLUTE AUTO 0.03 K/mm3 (0.00-0.23); BASOPHILS PERCENT AUTO 0 % (0-2); EOSINOPHILS ABSOLUTE AUTO 0.13 K/mm3 (0.00-0.68); EOSINOPHILS PERCENT AUTO 1 % (0-6); Hematocrit 41.6 % (37.0-53.0); Hemoglobin 13.2 g/dL (13.5-17.5); IMMATURE GRAN ABSOLUTE AUTO 0.04 K/mm3 (0.00-0.10); IMMATURE GRAN PERCENT AUTO 0 % (0-1); LYMPHOCYTES ABSOLUTE AUTO 2.41 K/mm3 (0.84-5.20); LYMPHOCYTES PERCENT AUTO 25 % (21-46); MONOCYTES ABSOLUTE AUTO 0.93 K/mm3 (0.16-1.47); MONOCYTES PERCENT AUTO 10 % (4-13); Mean Corpuscular HGB 30.6 pg (26.0-34.0); Mean Corpuscular HGB Conc 31.7 g/dL (31.5-36.5); Mean Corpuscular Volume 97 fL (80-100); Mean Platelet Volume 8.9 fL (9.1-12.4); NEUTROPHILS PERCENT AUTO 63 % (41-73); Platelet Count 312 K/mm3 (150-400); RDW Coefficient Variation 13.6 % (11.7-14.2); RDW Standard Deviation 48.7 fL (35.1-46.3); Red Blood Cell Count 4.31 M/mm3 (4.30-5.90); White Blood Cell Count 9.54 K/mm3 (4.00-11.30)
[2021-10-28 08:48] LABS: Albumin, Blood 3.1 g/dL (3.4-5.0); Bilirubin, Total 0.6 mg/dL (0.1-1.0); Bun/Creatinine Ratio 16.5 (12.0-20.0); Calcium, Blood 8.4 mg/dL (8.5-10.1); Globulin, Blood 3.2 g/dL (2.2-4.0); Potassium, Blood 4.7 mmol/L (3.5-5.5); Total Protein, Blood 6.3 g/dL (6.4-8.2)
--- NOTE | 2021-10-28 09:30 | NUR ---
TRANSFER TO SURGICAL FLOOR REPORT CALLED TO ROMINA RODRIGUEZ. PT TAKEN BY BED TO TRANSFER FROM MEDICAL [address] STERLING IN TO SEE PT AND SURGERY PLANNED FOR TOMORROW. DR. HERNANDEZ NOTIFIED AND ADA, NO ADDED NA DIET ORDERED FOR TODAY. PLANNED FOR NPO AFTER MN.
[2021-10-28] MEDS ORDERED: INSULANI SC (10:58)
[2021-10-28 13:34] LABS: Source, Urine Suprapubic Cath
[2021-10-28 13:43] LABS: Appearance, Urine Cloudy (Clear); Bilirubin, Urine Neg (Neg); Blood, Urine 4+ (Neg); Color, Urine Yellow (P-Yellow); Glucose Qualitative, Urine Neg (Neg); Ketones, Urine 1+ (Neg); Leukocyte Esterase, Urine 3+ (Neg); Nitrite, Urine Pos (Neg); Protein, Urine 1+ (Neg); Specific Gravity, Urine 1.015 (1.003-1.022); Urobilinogen, Urine NORM (Normal)
[2021-10-28 13:50] LABS: Red Blood Cells, Urine 25-50 /hpf (0-2)
[2021-10-28 13:51] LABS: Bacteria Many /hpf; Squamous Epithelial Cells Mod /hpf (Few)
[2021-10-28 13:52] LABS: Amorphous Light (0-Heavy); Mucus Heavy (0-Heavy)
--- NOTE | 2021-10-28 14:56 | NUR ---
SHIFT SUMMARY PT A&O4 TODAY ( REPORTS CAN BE ORIENTED OR FORGETFUL/CONFUSED R/T STROKE 2.5 YRS AGO AND ALZ/DEMENTIA), VSS/RA, CBGS ACHS/CNI, COVID NEG. R HIP FX, RLE EXTERNALLY ROTATED. PT CAN REPOSITION, MAY NEED ASSISTANCE. PT DENIES NEED FOR PAIN MEDICATION, DENIES N&V/SARA PO ADA DIET, CHRONIC SUPRAPUBIC ATKINS. PLAN FOR NPO MIDNIGHT FOR SURGICAL REPAIR TOMORROW. WILL REPORT TO ONCOMING NOC RN.
--- NOTE | 2021-10-29 03:41 | NUR ---
SHIFT SUMMARY: PATIENT AOX4, FOLLOWS COMMAND. SUPRA PUBIC CATHETER DRAINING CLEAR YELLOW URINE VIA GRAVITY.NPO INITIATED AT MIDNIGHT FOR SURGERY TODAY. DNR BRACELET TO LEFT WRIST. OFFERED PAIN MEDICINE, PT. REFUSED HE SAID HE DID NOT EVEN TAKE PAIN MEDICINE WHEN HE HAD SURGERY YEARS AGO.PT. IS CURRENTLY SLEEPING WELL, NON LABORED BREATHING & NO NEW UNSUALITIES NOTED.WILL CONTINUE TO MONITOR.
--- NOTE | 2021-10-29 17:52 | NUR ---
SHIFT SUMMARY PT A&OX3, VSS/RA/CBGS AC-HS, PLEASANT, KIND AND COOPERATIVE WITH CARE. S/P R MIHAI HIP, SURGICAL FOAM DRESSING CDI, WBAT. PAIN MANAGED WITH TYLENOL AND TORADOL. SARA PO. 18G RFA INFUSING IVF & ABX. CHRONIC SUPRAPUBIC ATKINS, STAT LOCK ON, OFF FLOOR. WILL REPORT TO ONCOMING NOC ROMINA.
--- NOTE | 2021-10-30 04:47 | NUR ---
SHIFT SUMMARY: PATIENT AOX4, R MIHAI HIP SURGERY POD1, SURGICAL SITE WITH DRESSING ON C/D/I. PT. DENIED PAIN & REFUSED ANY PAIN MEDICINE AFTER 2215 DOSE OF TORADOL. R ARM VASCULAR ACCESS NOTED WITH REDNESS AROUND & SLIGHT SWELLING, PT. DENIED ANY PAIN AROUND THE AREA, IV ACCESS D/C'D. NEW VASCULAR ACCESS G 20 PLACED TO LEFT FOREARM, PT. TOLERATED WELL. NO COMPLAINTS & SLEEPING WELL. IV ANTIBIOTICS TOLERATED WELL. WILL CONTINUE TO MONITOR.
[2021-10-30 05:16] LABS: BASOPHILS ABSOLUTE AUTO 0.03 K/mm3 (0.00-0.23); BASOPHILS PERCENT AUTO 0 % (0-2); EOSINOPHILS ABSOLUTE AUTO 0.17 K/mm3 (0.00-0.68); EOSINOPHILS PERCENT AUTO 2 % (0-6); Hematocrit 34.8 % (37.0-53.0); Hemoglobin 11.2 g/dL (13.5-17.5); IMMATURE GRAN ABSOLUTE AUTO 0.03 K/mm3 (0.00-0.10); IMMATURE GRAN PERCENT AUTO 0 % (0-1); LYMPHOCYTES ABSOLUTE AUTO 2.21 K/mm3 (0.84-5.20); LYMPHOCYTES PERCENT AUTO 19 % (21-46); MONOCYTES ABSOLUTE AUTO 0.84 K/mm3 (0.16-1.47); MONOCYTES PERCENT AUTO 7 % (4-13); Mean Corpuscular HGB 30.6 pg (26.0-34.0); Mean Corpuscular HGB Conc 32.2 g/dL (31.5-36.5); Mean Corpuscular Volume 95 fL (80-100); Mean Platelet Volume 9.3 fL (9.1-12.4); NEUTROPHILS ABSOLUTE AUTO 8.36 K/mm3 (1.96-9.15); NEUTROPHILS PERCENT AUTO 72 % (41-73); Platelet Count 234 K/mm3 (150-400); RDW Coefficient Variation 13.5 % (11.7-14.2); RDW Standard Deviation 47.8 fL (35.1-46.3); Red Blood Cell Count 3.66 M/mm3 (4.30-5.90); White Blood Cell Count 11.64 K/mm3 (4.00-11.30)
[2021-10-30 05:44] LABS: Bun/Creatinine Ratio 20.2 (12.0-20.0); Calcium, Blood 8.1 mg/dL (8.5-10.1); Creatinine, Blood 1.88 mg/dL (0.60-1.20); Magnesium, Blood 2.4 mg/dL (1.6-2.4); Potassium, Blood 4.2 mmol/L (3.5-5.5)
[2021-10-30 16:08] LABS: Influenza A, PCR NEGATIVE (NEGATIVE); Influenza B, PCR NEGATIVE (NEGATIVE); Resp Syncytial Virus, PCR NEGATIVE (NEGATIVE); SARS-Cov-2 (COVID-19) PCR, MMC NEGATIVE (NEGATIVE)
--- NOTE | 2021-10-30 18:57 | NUR ---
DISCHARGE REPORT CALLED TO KAVON AT [facility] AT 1700. PT HAD EXTRA LARGE FORMED BM PRIOR TO DISCHARGE. PAIN MANAGED AT TIME OF DISCHARGE. CLEAN DRESSINGS AND DISCHARGE PACKET SENT WITH THE PATIENT TO [facility]. PT LEFT AT APPROXIMATELY 1839 VIA W/C TRANSPORT TO [facility].
== END 2021-10-30 18:39 | DRG 522 ==
LOC: ER 20:00 → SURS 10-28 01:41 → MEDS 10-28 01:41 → SURS 10-28 09:17
PROVIDERS: Hospitalist; Orthopaedic Surgery; Physician Assistant; ADMIT Internal Medicine
PROC: 0SRR0JA Replacement of Right Hip Joint, Femoral Surface with Synthetic Substitute, Uncemented, Open Approach (ICD-10-PCS; principal; 2021-10-29 08:30)
DX: S72.091A Other fracture of head and neck of right femur, initial encounter for closed fracture (principal); N39.0 Urinary tract infection, site not specified; Z20.822 Contact with and (suspected) exposure to COVID-19; Z66 Do not resuscitate; K59.00 Constipation, unspecified; I25.10 Atherosclerotic heart disease of native coronary artery without angina pectoris; G30.9 Alzheimer's disease, unspecified; F02.80 Dementia in other diseases classified elsewhere, unspecified severity, without behavioral disturbance, psychotic disturbance, mood disturbance, and anxiety; E11.42 Type 2 diabetes mellitus with diabetic polyneuropathy; E11.22 Type 2 diabetes mellitus with diabetic chronic kidney disease; N18.30 Chronic kidney disease, stage 3 unspecified; I25.2 Old myocardial infarction; Z79.02 Long term (current) use of antithrombotics/antiplatelets; Z79.899 Other long term (current) drug therapy; Z79.82 Long term (current) use of aspirin; Z86.73 Personal history of transient ischemic attack (TIA), and cerebral infarction without residual deficits; Z79.4 Long term (current) use of insulin; Z90.89 Acquired absence of other organs; Z90.49 Acquired absence of other specified parts of digestive tract; Z89.022 Acquired absence of left finger(s); Z90.79 Acquired absence of other genital organ(s); W18.30XA Fall on same level, unspecified, initial encounter
CPT/HCPCS: 0241U; 36415; 70450; 72125; 72170; 73502; 80048; 80053; 81001; 82947; 83735; 85025; 87077; 87086; 87186; 88305; 88311; 96374; 96375; 97110; 97161; 97166; 97530; 99285-25; A9270; C1776; J0171; J0690; J0735; J1100; J1650; J1885; J2270; J2405; J2704; J2795; J3010; J3260; J3370; J7030

== ENCOUNTER 2021-11-21 11:15 | Observation (INO) | payer MEDICARE, BC ==
[~2021-11-21] VITALS: Ht 188 cm; Wt 77.1 kg
[~2021-11-21 11:15] MED LIST changes: +Amoxicillin500 MG PO; +MAGNESIUM OXID500 MG PO; -Magnesium250 MG PO
[2021-11-21 14:33] LABS: Albumin/Globulin Ratio 0.8 (0.8-1.8); Bilirubin, Total 0.5 mg/dL (0.1-1.0); Bun/Creatinine Ratio 17.4 (12.0-20.0); Calcium, Blood 9.1 mg/dL (8.5-10.1); Creatinine, Blood 1.9 mg/dL (0.60-1.20); Globulin, Blood 3.7 g/dL (2.2-4.0); Potassium, Blood 4.9 mmol/L (3.5-5.5); Total Protein, Blood 6.7 g/dL (6.4-8.2)
[2021-11-21 16:45] LABS: BASOPHILS ABSOLUTE AUTO 0.04 K/mm3 (0.00-0.23); BASOPHILS PERCENT AUTO 0 % (0-2); EOSINOPHILS ABSOLUTE AUTO 0.05 K/mm3 (0.00-0.68); EOSINOPHILS PERCENT AUTO 1 % (0-6); Hematocrit 36.3 % (37.0-53.0); Hemoglobin 11.6 g/dL (13.5-17.5); IMMATURE GRAN ABSOLUTE AUTO 0.06 K/mm3 (0.00-0.10); IMMATURE GRAN PERCENT AUTO 1 % (0-1); LYMPHOCYTES ABSOLUTE AUTO 2.09 K/mm3 (0.84-5.20); LYMPHOCYTES PERCENT AUTO 20 % (21-46); MONOCYTES ABSOLUTE AUTO 0.79 K/mm3 (0.16-1.47); MONOCYTES PERCENT AUTO 8 % (4-13); Mean Corpuscular HGB 30.6 pg (26.0-34.0); Mean Corpuscular Volume 96 fL (80-100); Mean Platelet Volume 9.2 fL (9.1-12.4); NEUTROPHILS ABSOLUTE AUTO 7.33 K/mm3 (1.96-9.15); NEUTROPHILS PERCENT AUTO 71 % (41-73); Platelet Count 387 K/mm3 (150-400); RDW Standard Deviation 48.9 fL (35.1-46.3); Red Blood Cell Count 3.79 M/mm3 (4.30-5.90); White Blood Cell Count 10.36 K/mm3 (4.00-11.30)
[2021-11-21 18:38] LABS: Influenza A, PCR NEGATIVE (NEGATIVE); Influenza B, PCR NEGATIVE (NEGATIVE); Resp Syncytial Virus, PCR NEGATIVE (NEGATIVE); SARS-Cov-2 (COVID-19) PCR, MMC NEGATIVE (NEGATIVE)
--- NOTE | 2021-11-21 18:39 | NUR ---
RECEIVED PHONE REPORT FROM NICO MCNULTY RN. INPATIENT ROOM IS BEING CLEANED CURRENTLY. WILL RELAY REPORT TO PM SHIFT NURSE AND HAVE THEM CALL THE ER WHEN THE ROOM IS CLEAN.
[2021-11-21] MEDS ORDERED: METO25ER PO (21:01)
[2021-11-21] MEDS ORDERED: DOCU100 PO (21:19)
[2021-11-21] MEDS ORDERED: ACET500 PO (21:19)
[2021-11-21] MEDS ORDERED: VISBIOME 112.51 EACH PO (21:21)
[2021-11-21 22:51] LABS: Source, Urine Suprapubic Cath
[2021-11-21 22:57] LABS: Bilirubin, Urine Neg (Neg); Blood, Urine 2+ (Neg); Glucose Qualitative, Urine Neg (Neg); Ketones, Urine 1+ (Neg); Leukocyte Esterase, Urine 2+ (Neg); Nitrite, Urine Neg (Neg); Protein, Urine 2+ (Neg); Specific Gravity, Urine 1.015 (1.003-1.022); Urobilinogen, Urine NORM (Normal)
[2021-11-21 23:45] LABS: Appearance, Urine Hazy (Clear); Color, Urine Yellow (P-Yellow)
[2021-11-21 23:49] LABS: Squamous Epithelial Cells Not Seen /hpf (Few)
[2021-11-21 23:50] LABS: Amorphous Light (0-Heavy); Bacteria Few /hpf; Calcium Oxalate Crystals Few /hpf; Mucus Light (0-Heavy)
[2021-11-22 05:35] LABS: BASOPHILS ABSOLUTE AUTO 0.04 K/mm3 (0.00-0.23); BASOPHILS PERCENT AUTO 0 % (0-2); EOSINOPHILS ABSOLUTE AUTO 0.06 K/mm3 (0.00-0.68); EOSINOPHILS PERCENT AUTO 1 % (0-6); Hematocrit 33.6 % (37.0-53.0); Hemoglobin 10.4 g/dL (13.5-17.5); IMMATURE GRAN ABSOLUTE AUTO 0.05 K/mm3 (0.00-0.10); IMMATURE GRAN PERCENT AUTO 1 % (0-1); LYMPHOCYTES ABSOLUTE AUTO 3.14 K/mm3 (0.84-5.20); LYMPHOCYTES PERCENT AUTO 29 % (21-46); MONOCYTES ABSOLUTE AUTO 1.06 K/mm3 (0.16-1.47); MONOCYTES PERCENT AUTO 10 % (4-13); Mean Corpuscular HGB 30.2 pg (26.0-34.0); Mean Corpuscular Volume 98 fL (80-100); Mean Platelet Volume 9.4 fL (9.1-12.4); NEUTROPHILS ABSOLUTE AUTO 6.57 K/mm3 (1.96-9.15); NEUTROPHILS PERCENT AUTO 60 % (41-73); Platelet Count 363 K/mm3 (150-400); RDW Coefficient Variation 14.3 % (11.7-14.2); RDW Standard Deviation 51.3 fL (35.1-46.3); Red Blood Cell Count 3.44 M/mm3 (4.30-5.90); White Blood Cell Count 10.92 K/mm3 (4.00-11.30)
[2021-11-22 06:01] LABS: Albumin, Blood 3.1 g/dL (3.4-5.0); Bilirubin, Total 0.6 mg/dL (0.1-1.0); Bun/Creatinine Ratio 16.5 (12.0-20.0); Calcium, Blood 8.8 mg/dL (8.5-10.1); Creatinine, Blood 2.67 mg/dL (0.60-1.20); Globulin, Blood 3.1 g/dL (2.2-4.0); Potassium, Blood 4.8 mmol/L (3.5-5.5); Total Protein, Blood 6.2 g/dL (6.4-8.2)
--- NOTE | 2021-11-22 17:45 | NUR ---
SHIFT SUMMARY: NO ACUTE EVENTS. NO EVENTS ON TELEMETRY, SR BBB RATE 90'S. C/O R HIP PAIN "ONLY WHEN I MOVE." A&O X 2, CONFUSED, LOSES TRACK OF TIME. TOLERATING DIET, BUT EATS VERY SLOWLY AND WANTS TO KEEP FOOD AT THE BEDSIDE. PHYSICAL THERAPY WORKED WITH PATIENT, NEEDED WEIGHT BEARING ORDERS TO PROGRESS. SUPRAPUBIC CATHETER DRAINING YELLOW URINE.
--- NOTE | 2021-11-23 06:17 | NUR ---
SHIFT SUMMARY PATIENT ALERT AND ORIENTED X2. HAD NO COMPLAINTS OF PAIN OR SHORTNESS OF BREATH. NO ACUTE ISSUES NOTED OVERNIGHT. BED IN LOWEST POSITION WITH WHEELS LOCKED AND ALARM ON. CALL LIGHT WITHIN REACH. REPORT GIVEN TO ONCOMING RN.
[2021-11-23 13:14] LABS: Influenza A, PCR NEGATIVE (NEGATIVE); Influenza B, PCR NEGATIVE (NEGATIVE); Resp Syncytial Virus, PCR NEGATIVE (NEGATIVE); SARS-Cov-2 (COVID-19) PCR, MMC NEGATIVE (NEGATIVE)
--- NOTE | 2021-11-23 13:51 | NUR ---
PATIENT DISCHARGED TO [facility]. IV SALINE REMOVED WITHOUT INCIDENT, TELEMETRY REMOVED. OFF UNIT AT 1345 VIA W/C VAN. NO BELONGINGS LEFT BEHIND IN ROOM.
== END 2021-11-23 13:46 ==
LOC: ER 11:15 → MEDS 11:16 → ERHOLD 11:16 → MEDS 11:17 → ER 17:37 → ERHOLD 17:37 → MEDS 18:14 → ERHOLD 20:24 → MEDS 20:24
PROVIDERS: Emergency Medicine; Internal Medicine; ADMIT Internal Medicine
DX: T84.020A Dislocation of internal right hip prosthesis, initial encounter (principal); S30.0XXA Contusion of lower back and pelvis, initial encounter; W18.30XA Fall on same level, unspecified, initial encounter; F03.90 Unspecified dementia, unspecified severity, without behavioral disturbance, psychotic disturbance, mood disturbance, and anxiety; N17.9 Acute kidney failure, unspecified; N18.30 Chronic kidney disease, stage 3 unspecified; E11.22 Type 2 diabetes mellitus with diabetic chronic kidney disease; I25.2 Old myocardial infarction; N40.1 Benign prostatic hyperplasia with lower urinary tract symptoms; N13.8 Other obstructive and reflux uropathy; Z96.0 Presence of urogenital implants; Z20.822 Contact with and (suspected) exposure to COVID-19; Z66 Do not resuscitate; Y79.2 Prosthetic and other implants, materials and accessory orthopedic devices associated with adverse incidents
CPT/HCPCS: 0241U; 27265; 27266; 36415; 73501; 73502; 73700; 80053; 81001; 82306; 85025; 87086; 93005; 93010; 96374; 97110; 97162; 97166; 97530; 99285-25; A9270; G0378; J2704; J3010; J7030

== ENCOUNTER 2021-12-18 11:27 | Emergency (ER) | payer MEDICARE, BC ==
[~2021-12-18] VITALS: Ht 188 cm; Wt 79.4 kg
[~2021-12-18 11:27] MED LIST changes: +ATOR40TA PO; +DOCU100 PO; +VISBIOME 112.51 EACH PO
[2021-12-18 15:33] LABS: BASOPHILS ABSOLUTE AUTO 0.02 K/mm3 (0.00-0.23); BASOPHILS PERCENT AUTO 0 % (0-2); EOSINOPHILS ABSOLUTE AUTO 0.03 K/mm3 (0.00-0.68); EOSINOPHILS PERCENT AUTO 0 % (0-6); Hematocrit 28.9 % (37.0-53.0); IMMATURE GRAN ABSOLUTE AUTO 0.06 K/mm3 (0.00-0.10); IMMATURE GRAN PERCENT AUTO 1 % (0-1); LYMPHOCYTES ABSOLUTE AUTO 1.63 K/mm3 (0.84-5.20); LYMPHOCYTES PERCENT AUTO 15 % (21-46); MONOCYTES ABSOLUTE AUTO 0.79 K/mm3 (0.16-1.47); MONOCYTES PERCENT AUTO 7 % (4-13); Mean Corpuscular HGB 30.2 pg (26.0-34.0); Mean Corpuscular HGB Conc 31.1 g/dL (31.5-36.5); Mean Corpuscular Volume 97 fL (80-100); Mean Platelet Volume 9.4 fL (9.1-12.4); NEUTROPHILS ABSOLUTE AUTO 8.32 K/mm3 (1.96-9.15); NEUTROPHILS PERCENT AUTO 77 % (41-73); Platelet Count 383 K/mm3 (150-400); RDW Coefficient Variation 14.6 % (11.7-14.2); Red Blood Cell Count 2.98 M/mm3 (4.30-5.90); White Blood Cell Count 10.85 K/mm3 (4.00-11.30)
[2021-12-18 15:48] LABS: Albumin, Blood 2.5 g/dL (3.4-5.0); Albumin/Globulin Ratio 0.6 (0.8-1.8); Bilirubin, Total 0.8 mg/dL (0.1-1.0); Bun/Creatinine Ratio 22.2 (12.0-20.0); Calcium, Blood 8.3 mg/dL (8.5-10.1); Creatinine, Blood 1.89 mg/dL (0.60-1.20); Potassium, Blood 4.1 mmol/L (3.5-5.5); Total Protein, Blood 6.5 g/dL (6.4-8.2)
[2021-12-18] MEDS ORDERED: CEPH500 PO (17:37)
[2021-12-18 17:53] LABS: Source, Urine Clean Catch
[2021-12-18 18:02] LABS: Bilirubin, Urine Neg (Neg); Blood, Urine 4+ (Neg); Glucose Qualitative, Urine 1+ (Neg); Ketones, Urine Neg (Neg); Leukocyte Esterase, Urine 3+ (Neg); Nitrite, Urine Pos (Neg); Protein, Urine 3+ (Neg); Urobilinogen, Urine NORM (Normal)
[2021-12-18 18:08] LABS: Appearance, Urine Cloudy (Clear); Color, Urine Pale Yellow (P-Yellow)
[2021-12-18 18:09] LABS: Bacteria Many /hpf; Red Blood Cells, Urine 25-50 /hpf (0-2); Squamous Epithelial Cells Few /hpf (Few)
[2021-12-18 18:10] LABS: Amorphous Mod (0-Heavy); Yeast/Fungi Urine Few /hpf
== END 2021-12-18 18:25 | disposition home or self-care (01) ==
LOC: ER 11:27
PROVIDERS: Physician Assistant
DX: T84.020A Dislocation of internal right hip prosthesis, initial encounter (principal); I25.2 Old myocardial infarction; E11.40 Type 2 diabetes mellitus with diabetic neuropathy, unspecified; Z79.4 Long term (current) use of insulin; Z79.899 Other long term (current) drug therapy
CPT/HCPCS: 36415; 73501; 73502; 80053; 81001; 85025; A9270; J2270; J2405; J2704; J7030

== ENCOUNTER 2022-03-26 22:41 | Emergency (ER) | payer MEDICARE, BC ==
[~2022-03-26] VITALS: Ht 188 cm; Wt 127.0 kg
[~2022-03-26 22:41] MED LIST changes: +CEPH500 PO
== END 2022-03-27 00:47 | disposition home or self-care (01) ==
LOC: ER 22:41
DX: T83.028A Displacement of other urinary catheter, initial encounter (principal); Y73.8 Miscellaneous gastroenterology and urology devices associated with adverse incidents, not elsewhere classified; E11.40 Type 2 diabetes mellitus with diabetic neuropathy, unspecified; I25.2 Old myocardial infarction; N40.0 Benign prostatic hyperplasia without lower urinary tract symptoms; Z79.899 Other long term (current) drug therapy; Z79.4 Long term (current) use of insulin
CPT/HCPCS: 51705; 99283-25; C2627